=== PATIENT | female | born 1940 | race Asian ===

== ENCOUNTER 2016-10-23 07:47 | Outpatient (CLI) | payer OTHER ==
[~2016-10-23 07:47] MED LIST: AMLO10TA PO; AMOX875T8 PO; ASA LO-DOSE81 MG PO; BENICAR40 MG PO; CLON0.5T36 PO; FISH OIL1000 M1 OR; FLUT0.05 NAS; FURO20TA67 PO; MELOXICAM15 MG OR; MICRO-K10 MEQ OR; SIMV10TA PO; TRAZ50TA36 PO; VERA120T22 PO; [UNRECOGNIZED DRUG - OTHER] OR
== END 2016-10-23 19:30 | disposition home or self-care (01) ==
LOC: RESP 07:47
DX: J45.998 Other asthma (principal); M85.80 Other specified disorders of bone density and structure, unspecified site; Z78.0 Asymptomatic menopausal state

== ENCOUNTER 2017-04-10 07:33 | Outpatient (CLI) | payer OTHER ==
[2017-04-10 08:11] LABS: PLATELET COUNT 221 K/uL (152-353)
[2017-04-10 09:09] LABS: POTASSIUM 3.7 mmol/L (3.6-5.2)
== END 2017-04-10 08:40 | disposition home or self-care (01) ==
LOC: LABW 07:33
PROVIDERS: Internal Medicine
DX: I10 Essential (primary) hypertension (principal)
CPT/HCPCS: 36415; 80053; 80061; 81000; 84443; 85027

== ENCOUNTER 2017-05-21 09:28 | Outpatient (CLI) | payer OTHER ==
[2017-05-21 10:19] LABS: PARTIAL THROMBOPLASTIN TIME 23.9 SECONDS (24.5-33.6)
[2017-05-21 11:00] LABS: POTASSIUM 3.7 mmol/L (3.6-5.2)
== END 2017-05-21 11:00 | disposition home or self-care (01) ==
LOC: LABW 09:28
PROVIDERS: Internal Medicine
DX: Z01.818 Encounter for other preprocedural examination (principal); R79.1 Abnormal coagulation profile; R73.09 Other abnormal glucose
CPT/HCPCS: 36415; 80053; 83036; 85610; 85730

== ENCOUNTER 2017-08-26 08:09 | Outpatient (CLI) | payer OTHER | END 2017-08-26 10:30 | disposition home or self-care (01) | LOC: NM 08:09 | DX: I10 Essential (primary) hypertension (principal); Z01.810 Encounter for preprocedural cardiovascular examination | CPT/HCPCS: 93306; A9500; J2785 ==

== ENCOUNTER 2017-09-15 08:54 | Outpatient (CLI) | payer OTHER ==
[2017-09-15 09:49] LABS: PLATELET COUNT 221 K/uL (152-353)
[2017-09-15 09:51] LABS: POTASSIUM 3.8 mmol/L (3.6-5.2)
== END 2017-09-15 09:55 | disposition home or self-care (01) ==
LOC: LABW 08:54
PROVIDERS: Specialist
DX: Z01.810 Encounter for preprocedural cardiovascular examination (principal); R93.1 Abnormal findings on diagnostic imaging of heart and coronary circulation
CPT/HCPCS: 36415; 80053; 85027

== ENCOUNTER 2018-01-21 07:00 | Outpatient (CLI) | payer OTHER | END 2018-01-21 20:23 | disposition home or self-care (01) | LOC: LABW 07:00 | PROVIDERS: Nurse Practitioner Adult Health | DX: I25.10 Atherosclerotic heart disease of native coronary artery without angina pectoris (principal); E78.2 Mixed hyperlipidemia; Z79.899 Other long term (current) drug therapy; Z51.81 Encounter for therapeutic drug level monitoring | CPT/HCPCS: 36415; 80061; 80076 ==

== ENCOUNTER 2018-04-16 08:10 | Outpatient (CLI) | payer OTHER | END 2018-04-16 19:31 | disposition home or self-care (01) | LOC: LABW 08:10 | PROVIDERS: Nurse Practitioner Adult Health | DX: I25.10 Atherosclerotic heart disease of native coronary artery without angina pectoris (principal); E78.2 Mixed hyperlipidemia; Z79.899 Other long term (current) drug therapy; Z51.81 Encounter for therapeutic drug level monitoring | CPT/HCPCS: 36415; 80061; 80076 ==

== ENCOUNTER 2018-09-02 08:07 | Outpatient (CLI) | payer OTHER ==
[2018-09-02 08:23] LABS: PLATELET COUNT 218 K/uL (152-353)
== END 2018-09-02 19:34 | disposition home or self-care (01) ==
LOC: LABW 08:07
PROVIDERS: Physician Assistant
DX: I10 Essential (primary) hypertension (principal); G25.0 Essential tremor; K76.0 Fatty (change of) liver, not elsewhere classified; Z79.899 Other long term (current) drug therapy; Z13.6 Encounter for screening for cardiovascular disorders; Z12.31 Encounter for screening mammogram for malignant neoplasm of breast
CPT/HCPCS: 36415; 80053; 80061; 83036; 84439; 84443; 85027

== ENCOUNTER 2018-09-08 08:27 | Outpatient (CLI) | payer OTHER | END 2018-09-08 21:01 | disposition home or self-care (01) | LOC: US 08:27 | DX: I10 Essential (primary) hypertension (principal); Z13.5 Encounter for screening for eye and ear disorders; Z12.31 Encounter for screening mammogram for malignant neoplasm of breast ==

== ENCOUNTER 2018-12-10 16:57 | Outpatient (CLI) | payer OTHER | END 2018-12-10 21:53 | disposition home or self-care (01) | LOC: RAD 16:57 | DX: M25.551 Pain in right hip (principal) ==

== ENCOUNTER 2018-12-14 07:43 | Outpatient (CLI) | payer OTHER | END 2018-12-14 21:46 | disposition home or self-care (01) | LOC: LABW 07:43 | PROVIDERS: Nurse Practitioner Adult Health | DX: E78.2 Mixed hyperlipidemia (principal); Z79.899 Other long term (current) drug therapy | CPT/HCPCS: 36415; 80061; 80076 ==

== ENCOUNTER 2019-03-21 11:27 | Emergency (ER) | payer OTHER ==
[~2019-03-21] VITALS: Ht 170.2 cm; Wt 97.5 kg
[2019-03-21 11:40] VITALS: TEMP 97.5
[2019-03-21 12:29] LABS: PLATELET COUNT 231 K/uL (152-353)
[2019-03-21 12:31] LABS: POTASSIUM 3.7 mmol/L (3.6-5.2)
[2019-03-21 15:30] VITALS: BP 146/82
== END 2019-03-21 15:31 | disposition home or self-care (01) ==
LOC: ED 11:27
PROVIDERS: Family Medicine
DX: J40 Bronchitis, not specified as acute or chronic (principal); R05 Cough
CPT/HCPCS: 80053; 85027; 94664; 99283; J1100

== ENCOUNTER 2019-06-22 08:01 | Outpatient (CLI) | payer OTHER | END 2019-06-22 20:13 | disposition home or self-care (01) | LOC: LABW 08:01 | PROVIDERS: Nurse Practitioner Adult Health | DX: I25.10 Atherosclerotic heart disease of native coronary artery without angina pectoris (principal); E78.2 Mixed hyperlipidemia; Z79.899 Other long term (current) drug therapy | CPT/HCPCS: 36415; 80061; 80076 ==

== ENCOUNTER 2019-07-23 07:40 | Outpatient (CLI) | payer OTHER ==
[2019-07-23 08:21] LABS: PLATELET COUNT 214 K/uL (152-353)
[2019-07-23 09:37] LABS: POTASSIUM 3.9 mmol/L (3.6-5.2)
== END 2019-07-23 19:53 | disposition home or self-care (01) ==
LOC: LABW 07:40
PROVIDERS: Internal Medicine
DX: I10 Essential (primary) hypertension (principal); R82.998 Other abnormal findings in urine
CPT/HCPCS: 36415; 80053; 80061; 81000; 84439; 84443; 85027; 87077; 87086; 87088; 87186

== ENCOUNTER 2019-08-06 12:35 | Outpatient (CLI) | payer OTHER | END 2019-08-06 21:59 | disposition home or self-care (01) | LOC: CT 12:35 | DX: R22.0 Localized swelling, mass and lump, head (principal) ==

== ENCOUNTER 2019-10-19 14:03 | Emergency (ER) | payer OTHER ==
[~2019-10-19] VITALS: Ht 170.2 cm; Wt 104.3 kg
[2019-10-19 15:21] LABS: POTASSIUM 3.9 mmol/L (3.6-5.2)
[2019-10-19 15:24] LABS: PLATELET COUNT 244 K/uL (152-353)
[2019-10-19 18:25] VITALS: BP 166/89; TEMP 98.2
== END 2019-10-19 18:25 | disposition home or self-care (01) ==
LOC: ED 14:03
PROVIDERS: Family Medicine
DX: J20.9 Acute bronchitis, unspecified (principal)
CPT/HCPCS: 80053; 81000; 85007; 85027; 87502; 94664; 96374; 99284; J2930

== ENCOUNTER 2019-11-04 14:33 | Outpatient (CLI) | payer OTHER | END 2019-11-04 23:07 | disposition home or self-care (01) | LOC: US 14:33 | DX: I73.9 Peripheral vascular disease, unspecified (principal) ==

== ENCOUNTER 2019-11-27 09:00 | Outpatient (CLI) | payer OTHER ==
[2019-11-27 09:25] LABS: PLATELET COUNT 205 K/uL (152-353)
[2019-11-27 09:40] LABS: POTASSIUM 3.6 mmol/L (3.6-5.2)
== END 2019-11-27 21:40 | disposition home or self-care (01) ==
LOC: RAD 09:00
PROVIDERS: Internal Medicine
DX: Z01.818 Encounter for other preprocedural examination (principal); J45.901 Unspecified asthma with (acute) exacerbation
CPT/HCPCS: 36415; 80053; 81000; 85027

== ENCOUNTER 2020-06-30 08:11 | Outpatient (CLI) | payer OTHER | END 2020-06-30 23:24 | disposition home or self-care (01) | LOC: RAD 08:11 | DX: Z13.820 Encounter for screening for osteoporosis (principal); N95.8 Other specified menopausal and perimenopausal disorders ==